=== PATIENT | female | born 1970 | race African-American/Black ===

== ENCOUNTER 2019-02-06 11:25 | Day surgery (SDC) | payer OTHER ==
[2019-01-31 10:45] LABS: ANION GAP 6 (5-19); BLOOD UREA NITROGEN 10 mg/dL (7-20); CALCIUM 9.2 mg/dL (8.4-10.2); CARBON DIOXIDE 27 mmol/L (22-30); CHLORIDE 105 mmol/L (98-107); GLUCOSE 105 mg/dL (75-110)
--- NOTE | 2019-01-31 19:07 | EKG REPORT ---
SEVERITY:- BORDERLINE ECG - SINUS RHYTHM BORDERLINE T WAVE ABNORMALITIES : Confirmed by: Leslye Saleh MD 31-Jan-2019 19:07:21
[~2019-02-06 11:25] MED LIST: CEFAZOLIN SODIUM 1 GM in DEXTROSE 5%-WATER 50 ML IV PRN; RINGERS SOLUTION,LACTATED 1,000 ML IV PRN
[2019-02-06] MEDS ORDERED: BUPIVACAINE HCL 0.5%/EPI 1:200000 INJ 1.8 ML CARTRIDGE ONE (13:51)
[2019-02-06] MEDS ORDERED: BUPIVACAINE HCL 0.5 % INJ/PF 30 ML SDV ONE (13:52)
[2019-02-06] MEDS ORDERED: MIDAZOLAM 2 MG/2 ML INJ ONE (14:30)
[2019-02-06] MEDS ORDERED: FENTANYL CITRATE INJ/PF 100 MCG/2 ML AMPUL ONE (14:30)
[2019-02-06] MEDS ORDERED: PROPOFOL INJ 200 MG/20 ML VIAL IV ONE (14:30)
[2019-02-06] MEDS ORDERED: DEXMEDETOMIDINE INJ 80 MCG/20 ML VIAL IV ONE (14:51)
[2019-02-06] MEDS ORDERED: LIDOCAINE 1%/EPINEPHRINE INJ 20 ML VIAL ONE (15:04)
--- NOTE | 2019-02-06 15:20 | Operative Report ---
Nonrecallable Operative Report DATE OF SURGERY: 02/06/19 PREOPERATIVE DIAGNOSIS: posterior auricular mass POSTOPERATIVE DIAGNOSIS: posterior auricular mass OPERATION: Excision of posterior auricular mass SURGEON: MANISHA MARLOW 1ST [employer] ASSISTANT PRINCIPAL: ROSY MUÑOZ ANESTHESIA: Moderate Sedation TISSUE REMOVED OR ALTERED: Lipoma COMPLICATIONS: None ESTIMATED BLOOD LOSS: 2 cc INTRAOPERATIVE FINDINGS: See dictation PROCEDURE: Patient was brought to the operating room awake alert stable condition placed in the operative table supine position given IV sedation she was then placed in a left lateral decubitus position the right sided posterior auricular mass was anesthetized with 1% lidocaine without epinephrine after appropriate prep and drape of the right posterior auricular area. After appropriate timeout and site verification we made a longitudinal incision over the mass. Dissection was then carried down through subcutaneous tissue with the 15 blade until we identified a lipoma which was easily enucleated. Hemostasis of the wound was then obtained with Bovie cautery. The skin was then closed with 4-0 Biosyn suture and a sterile dressing was applied. Estimated blood loss for the procedure was less than 2 cc sponge and needle counts were correct x2. Patient was then transferred to recovery in stable condition. Rosy vincent was present for the entire procedure for help with wound retraction wound closure
--- NOTE | 2019-02-06 15:22 | Discharge Summary ---
Discharge Summary (SDC) - Discharge Final Diagnosis: Posterior auricular lipoma Date of Surgery: 02/06/19 Discharge Date: 02/06/19 Condition: Good Referrals: FIDELINA MONTES DE OCA PA-C [Primary Care Provider] - Discharge Diet: As Tolerated Discharge Activity: Activity As Tolerated Report the Following to Your Physician Immediately: Increase in Pain, Unusual Bleeding - Patient needs a follow-up appointment surgery clinic in 10 to 14 days
[2019-02-06] MEDS ORDERED: FENTANYL CITRATE INJ/PF 100 MCG/2 ML AMPUL IV PRN (15:30)
[2019-02-06] MEDS ORDERED: PROMETHAZINE HCL INJ 25 MG/1 ML VIAL IV PRN (15:30)
[2019-02-06] MEDS ORDERED: DIPHENHYDRAMINE HCL 50 MG/ML VIAL IV PRN (15:30)
[2019-02-06] MEDS ORDERED: MEPERIDINE HCL/PF INJ 25 MG/1 ML DISP.SYRIN IV PRN (15:30)
[2019-02-06 17:43] VITALS: BP 110/80
== END 2019-02-06 17:25 | disposition home or self-care (01) ==
LOC: OROUT 11:25
PROVIDERS: ATTEND Surgery
DX: D17.0 Benign lipomatous neoplasm of skin and subcutaneous tissue of head, face and neck (principal); I10 Essential (primary) hypertension; Z79.899 Other long term (current) drug therapy
CPT/HCPCS: 93005; 36415 ×2; 84132; 84703; 80048; 93010; 69110; J2250; J3490 ×2; J0690; J3010; J7060; J2704; 120